=== PATIENT | female | born 2000 | race Caucasian/White ===

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

== ENCOUNTER 2018-02-12 14:57 | Emergency (ER) | payer MEDICAID, OTHER ==
[~2018-02-12] VITALS: Ht 172.7 cm; Wt 82.6 kg
[2018-02-12 15:04] VITALS: BP 126/72
--- NOTE | 2018-02-12 15:08 | NUR ---
gave report to Khanh MELGOZA
--- NOTE | 2018-02-12 15:10 | NUR ---
PATIENT AMBULATED TO BED 7
--- NOTE | 2018-02-12 15:12 | NUR ---
17/F BIB FAMILY with c/o difficultly breathing x 3 weeks. Patient states "I feel like somebody is choking me and can not breath good". Patient ultrasound done approximately August 2017 and found "cysts on throat". Clear speech with full setences. No drooling noted. RR are even and unlabored. DENIES N/V/D; SKIN IS PINK/WARM/DRY; AAOX4 WITH EVEN AND STEADY GAIT; LUNGS CLEAR BL; HR EVEN AND REGULAR; PT DENIES ANY FEVER OR CP AT THIS TIME; PATIENT STATES PAIN OF 0/10 AT THIS TIME. PATIENT POSITIONED FOR COMFORT; HOB ELEVATED; BEDRAILS UP X2; BED DOWN. ER MD MADE AWARE OF PT STATUS.
--- NOTE | 2018-02-12 15:12 | NUR ---
Note undone in EDM - 02/12/18 at 1517 by MED1 / with c/o difficultly breathing x 3 weeks. Patient states "I feel like somebody is choking me and can not breath good". Patient ultrasound done approximately August 2017 and found "cysts on throat". Clear speech with full setences. No drooling noted. RR are even and unlabored. DENIES N/V/D; SKIN IS PINK/WARM/DRY; AAOX4 WITH EVEN AND STEADY GAIT; LUNGS CLEAR BL; HR EVEN AND REGULAR; PT DENIES ANY FEVER, CP OR COUGH AT THIS TIME; PATIENT STATES PAIN OF 0/10 AT THIS TIME. PATIENT POSITIONED FOR COMFORT; HOB ELEVATED; BEDRAILS UP X2; BED DOWN. ER MD MADE AWARE OF PT STATUS.
--- NOTE | 2018-02-12 15:47 | NUR ---
Patient being evaluated by DR HADLEY at bedside.
[2018-02-12] MEDS ORDERED: ALBUTEROL SULFATE/IPRATROPIU 3 ML SOL IH ONE (16:05)
--- NOTE | 2018-02-12 16:14 | NUR ---
RT AT BEDSIDE FOR BREATHING TREATMENT.
[2018-02-12 16:42] VITALS: BP 132/63
== END 2018-02-12 16:42 | disposition home or self-care (01) ==
LOC: MED 14:57
DX: J45.909 Unspecified asthma, uncomplicated (principal); F41.9 Anxiety disorder, unspecified
CPT/HCPCS: 94640; 99283; J7620